=== PATIENT | female | born 1960 | race Caucasian/White ===

== ENCOUNTER 2017-05-20 06:08 | Day surgery (SDC) | payer BC ==
[2017-05-20] VITALS (17 sets, daily range): BP systolic 113–125; BP diastolic 63–76
[~2017-05-20] VITALS: Ht 170.2 cm; Wt 75.7 kg
[~2017-05-20 06:08] MED LIST: APRI1 EACH PO; ASPIR 8181 MG ORAL; ATORVASTATIN CA20 MG ORAL; CLARITIN-D 121 EAC1 ORAL; ENALAPRIL MALEAT5 MG ORAL; ESTRADIOL-NORE1 EACH PO; LORAZEPAM1 MG ORAL; METFORMIN HCL1000 M1 ORAL; VALTREX500 MG ORAL; VITAMIN D1000 UNI1 ORAL; ZYRTEC10 MG ORAL; ceFAZolin 1gm in D5W 55ml IVP ONE; celeBREX 200mg Cap **SURGERY PATIENTS ONLY ORAL ONE; oxyCONTIN 20mg tab ORAL ONE
[2017-05-20] MEDS ORDERED: Neostigmine 1mg/ml 10ml Inj ONE ×2 (06:48→09:00)
[2017-05-20] MEDS ORDERED: Ropivacaine 5mg/ml Vial 30ml INJ ONE (06:48)
[2017-05-20] MEDS ORDERED: Bupivacaine 0.25% Inj 30ml INJ ONE (06:48)
[2017-05-20] MEDS ORDERED: EPINEPHrine 1mg/1ml Amp ONE (06:48)
[2017-05-20] MEDS ORDERED: GLYBURIDE5 MG PO (06:55)
[2017-05-20] MEDS ORDERED: Acetaminophen (Non formulary) 100 ML IV ONE ×2 (07:00)
[2017-05-20] MEDS ORDERED: celeBREX 200mg Cap **SURGERY PATIENTS ONLY ORAL ONE (07:01)
--- NOTE | 2017-05-20 07:11 | Pre-Procedure Note/Attestation ---
Pre-Procedure Note/Attestation Complete Prior to Procedure Planned Procedure: right Procedure Narrative: shoulder arthroscopic rct repair, sad Indications for Procedure Pre-Operative Diagnosis: right shoulder rct, impingement Attestation I attest that I discussed the nature of the procedure; its benefits; risks and complications; and alternatives (and the risks and benefits of such alternatives ), prior to the procedure, with the patient (or the patient's legal sales and marketing representative). I attest that, if there was a reasonable possibility of needing a blood transfusion, the patient (or the patient's legal sales and marketing representative) was given the [facility] standardized written summary, pursuant to the Jorgito Rajiv Blood Safety Act ([place] Health and Safety Code # 1645, as amended). I attest that I re-evaluated the patient just prior to the surgery and that there has been no change in the patient's H&P, except as documented below: ROXANE OWEN May 20, 2017 07:11
--- NOTE | 2017-05-20 07:11 | Operative Note - PDOC ---
Operative Note Operative Note Pre-op Diagnosis: right shoulder rct, impingement Procedure: right shoulder arthrsocpy, see op report Post-op Diagnosis: same as pre-op plus Operative Findings: consistent w/pre-op dx studies Anesthesia: regional Specimen: none Complications: none Condition: stable Estimated Blood Loss: none Implant(s) used?: Yes ROXANE OWEN May 20, 2017 07:11
[2017-05-20] MEDS ORDERED: Tylenol #3 tab (300mg/30mg) ORAL PRN (07:15)
[2017-05-20] MEDS ORDERED: D5 1/2NS 1,000 ML IV SCH (07:15)
[2017-05-20] MEDS ORDERED: Norco 5mg/325mg tab ORAL PRN (07:15)
[2017-05-20] MEDS ORDERED: HYDROmorphone 1mg/ml Carpuject SUBQ PRN (07:15)
[2017-05-20] MEDS ORDERED: Phenylephrine 10mg/ml Vial ONE (09:00)
[2017-05-20] MEDS ORDERED: Propofol 200mg/20ml IV ONE (09:00)
[2017-05-20] MEDS ORDERED: Zemuron 50mg/5ml Inj IV ONE (09:00)
[2017-05-20] MEDS ORDERED: Sodium Chloride 10ml vial INJ ONE (09:00)
[2017-05-20] MEDS ORDERED: LR 1000ml ONE (09:00)
[2017-05-20] MEDS ORDERED: Midazolam 2mg/2ml Inj ONE (09:00)
[2017-05-20] MEDS ORDERED: NS Irrig 4000ml IRRIG ONE (09:00)
[2017-05-20] MEDS ORDERED: fentaNYL 100 mcg/2 mL IV ONE (09:00)
[2017-05-20] MEDS ORDERED: Glycopyrrolate 0.2mg/ml 1ml Vial ONE (09:00)
[2017-05-20] MEDS ORDERED: Metoclopramide 10mg/2ml Inj ONE (09:00)
--- NOTE | 2017-05-20 09:28 | Anethesia Preoperative Eval ---
Anesthesia Pre-op PMH/ROS General Date of Evaluation: May 20, 2017 Time of Evaluation: 08:50 Anesthesiologist: carli ASA Score: ASA 2 Mallampati Score Class I : Soft palate, uvula, fauces, pillars visible Class II: Soft palate, uvula, fauces visible Class III: Soft palate, base of uvula visible Class IV: Only hard plate visible Mallampati Classification: Class II Surgeon: bernadette Diagnosis: rotator cuff tear Surgical Procedure: right shoulder cuff repair Anesthesia History: none Family History: no anesthesia problems Allergies: Coded Allergies: No Known Allergies (Unverified , 05/19/17) Medications: see eMAR Past Medical History Cardiovascular: Reports: HTN Pulmonary: Denies: asthma, COPD, NICK, other Gastrointestinal/Genitourinary: Denies: GERD, CRI, ESRD, other Neurologic/Psychiatric: Denies: dementia, CVA, depression/anxiety, TIA, other Endocrine: Reports: DM Hematology/Immune: Denies: anemia, DVT, bleeding disorder, other Musculoskeletal/Integumentary: Denies: OA, RA, DJD, DDD, edema, other PSxH Narrative: foot surgery Anesthesia Pre-op Phys. Exam Physician Exam Last Vital Signs Date Time Temp Pulse Resp B/P (MAP) Pulse Ox O2 Delivery O2 Flow Rate FiO2 05/20/17 06:50 98.5 83 18 120/70 98 Room Air Constitutional: NAD Neurologic: CN 2-12 intact Cardiovascular: RRR Respiratory: CTA Gastrointestinal: S/NT/ND Airway Exam Mallampati Score: Class II MO: full ROM: full Dentures: no upper, no lower Anesthesia Pre-op A/P Labs Urine Test na Studies Pre-op Studies: EKG - sr Risk Assessment & Plan Assessment: denies cp/sob Plan: general + peripheral nerve block Status Change Before Surgery: No Pre-Antibiotics Drug: ancef Given Within 1 Hr of Incision: Yes Time Given: 09:20 GABBY SINGH CRNA May 20, 2017 09:28
--- NOTE | 2017-05-20 11:52 | Immediate Post-Op Evaluation ---
Immediate Post-Op Evalulation Immediate Post-Op Evalulation Procedure: right shoulder rotator cuff repair Date of Evaluation: May 20, 2017 Time of Evaluation: 10:20 IV Fluids: 800 Blood Pressure Systolic: 107 Blood Pressure Diastolic: 77 Pulse Rate: 71 Respiratory Rate: 14 O2 Sat by Pulse Oximetry: 100 Temperature (Fahrenheit): 97.0 Pain Score (1-10): 0 Nausea: No Vomiting: No Complications none Patient Status: awake, reacts Hydration Status: adequate Drug: GABBY Chin CRNA May 20, 2017 11:52
--- NOTE | 2017-05-20 15:09 | 48 Hour Post Anesthesia Eval ---
Post Anesthesia Evaluation Procedure: right shoulder rotator cuff repair Date of Evaluation: May 20, 2017 Time of Evaluation: 15:09 Blood Pressure Systolic: 116 0: 74 Pulse Rate: 70 Respiratory Rate: 14 O2 Sat by Pulse Oximetry: 100 Airway: patent Nausea: No Vomiting: No Pain Intensity: 0 Hydration Status: adequate Cardiopulmonary Status: STABLE Mental Status/LOC: patient returned to baseline Post-Anesthesia Complications: none GABBY SINGH CRNA May 20, 2017 15:09
--- NOTE | 2017-05-20 20:30 | Operative Note - Dictated ---
DATE OF OPERATION: 05/20/2017 PREOPERATIVE DIAGNOSES: 1. Right shoulder high-grade, almost full-thickness rotator cuff tear. 2. Right shoulder impingement syndrome/bursitis. 3. Right shoulder acromioclavicular joint arthropathy. POSTOPERATIVE DIAGNOSES: 1. Right shoulder high-grade, almost full-thickness rotator cuff tear. 2. Right shoulder impingement syndrome/bursitis. 3. Right shoulder acromioclavicular joint arthropathy. PROCEDURES: 1. Right shoulder arthroscopy with extensive intraarticular debridement. 2. Right shoulder arthroscopic rotator cuff repair. 3. Right shoulder subacromial decompression bursectomy. 4. Right shoulder AC joint coplaning. SURGEON: Rakesh Alvarez M.D. ANESTHESIA: Interscalene with general. INDICATION FOR PROCEDURE: The patient is a pleasant female, who has had significant right shoulder pain. She had a high-grade, almost full-thickness rotator cuff tear, failed conservative treatment and elected to undergo right shoulder arthroscopy and rotator cuff repair. Risks, limitations, expectations, and complications of the procedure were discussed in detail. DESCRIPTION OF PROCEDURE: An informed consent was obtained. The patient was brought to the operating room and placed supine under interscalene general anesthesia. The patient was then carefully placed in beach chair position. Right shoulder was prepped and draped in a sterile manner. Time-out was performed. A posterolateral skin incision was then made. Trocar was introduced into the glenohumeral joint. There was no significant chondral damage. The anterior labrum along with the superior labrum was intact. The biceps tendon was normal. There was a significant high-grade tear involving majority of the footprint of the supraspinatus. A spinal needle was then placed through this interval. A camera was repositioned in the subacromial space. Complete bursectomy was then performed. The undersurface of the acromion was identified. Acromioplasty was started from medial to lateral and completed from posterior to anterior. At this point, the camera was repositioned in the glenohumeral joint. A shaver was then used to debride the entire left tissue lateral to the articular margin. Once that was completed, the anchor was placed. The camera was repositioned in the subacromial space and two mattress sutures were then placed. Lateral row anchor was also used. At this point, the camera was repositioned in the glenohumeral joint and the footprint was re-created. The camera was repositioned in the subacromial space. AC joint coplaning was performed. The instruments were removed. Portal sites were closed with 3-0 Monocryl sutures. Steri-Strips and a sterile dressing were applied. The patient was awoken and taken to recovery room with stable vital signs. ESTIMATED BLOOD LOSS: None. COMPLICATIONS: None. SPECIMENS: None. IMPLANTS: Two [employer]omet arthroscopic anchors. Rakesh Alvarez M.D. DR: YANCY JOB#: [id number] CC: [email or web address]
== END 2017-05-20 13:50 | disposition home or self-care (01) ==
LOC: SUR 06:08
DX: M75.111 Incomplete rotator cuff tear or rupture of right shoulder, not specified as traumatic (principal); M75.41 Impingement syndrome of right shoulder; M19.011 Primary osteoarthritis, right shoulder; E11.9 Type 2 diabetes mellitus without complications; E78.5 Hyperlipidemia, unspecified; Z83.3 Family history of diabetes mellitus; Z82.49 Family history of ischemic heart disease and other diseases of the circulatory system; Z80.9 Family history of malignant neoplasm, unspecified; Z87.891 Personal history of nicotine dependence; I10 Essential (primary) hypertension
CPT/HCPCS: 29823; 29827; 82962; C1713; J0171; J0690; J2250; J2370; J2405; J2704; J2710; J2765; J2795; J3010; J3490; J7120; 94003; 94150